=== PATIENT | female | born 1960 | race African-American/Black ===

== ENCOUNTER 2021-10-07 14:36 | Inpatient (IN) | payer OTHER ==
[~2021-10-07] VITALS: Ht 152.4 cm; Wt 122.5 kg
--- NOTE | ~2021-10-07 | EMS ---
[address] [address] EMS Patient Care Report Name: SHERRY WEIR Room #: 205-P ADM IN M.R.#: [id number] Admission: 10/07/21 Attend Phys: Aydin Titus MD Discharge: Date of : 60 Report #: [id number] THIS REPORT FOR: //name// Report Transmitted: 10/09/2021 09:53 EMS Care Summary [place], [place]/[facility] Incident [id number] @ 10/07/2021 14:07 Incident Location [address] [facility] [address] Patient SHERRY MARTINEZ Female, 60 Years 1960 Patient Address [address] [facility] [address] [place] [address] Patient History Stroke/CVA, Patient Allergies No known allergies, Patient Medications Unknown, Chief Complaint RLQ ABD PAIN Disposition Transported No Lights/[place] Dispatch Reason Abdominal Pain/Problems Transported To [facility] Narrative UPON ARIVAL WE FOUND OUR 60 YEAR OLD FEMALE PATIENT, WITH A HX OF A CVA WITH LEFT SIDE DEFICITS, LAYING IN BED IN HER ROOM AT [facility] COMPLAINING OF CONSTANT, SHARP RLQ ABD PAIN X 24 HRS. THE PATIENT STATES [place] STAFF REFUSED TO [facility] [address] [place] [address] EMS Patient Care Report Name: SHERRY WEIR Room #: 205-P ADM IN Bryce#: [id number] Admission: 10/07/21 Attend Phys: Aydin Titus MD Discharge: Date of : 60 Report #: [id number] ADDRESS HER CONCERNS, SO SHE CALLED 911. THE PATIENT DENIES ANY CP, SOA, N/V/D, CONSTIPATION, BLOODY STOOLS, FEVER, CHILLS, OR RECENT ILLNESS. THE PATIENT REQUESTS TRANSPORT TO [facility] FOR EVALUATION. Initial Vitals @14:19P: 61,R: 18,BP: 153/67,Pain: 6/10,GCS: 15,SpO2: 97,Revised Trauma: 12, @14:30P: 68,R: 18,BP: 150/68,Pain: 6/10,GCS: 15,SpO2: 98,Revised Trauma: 12, Assessments @14:15MENTAL:Time Oriented,Person Oriented,Place Oriented,Event Oriented,SKIN:HEENT:Eyes: Left Pupil: 4-mm,Eyes: Right Pupil: 4-mm,Head/Face: No Abnormalities,Neck/Airway: No Abnormalities,LUNG SOUNDS:Right Lower: Tenderness,General: No Abnormalities,ABDOMEN:Right Lower: Tenderness,General: No Abnormalities,PELVIS//GI:No Abnormalities,EXTREMITIES:Left Arm: No Abnormalities,Right Arm: No Abnormalities,Left Leg: No Abnormalities,Right Leg: No Abnormalities,PULSE:Radial: 2+ Normal,NEURO:No Abnormalities, Impression Abdominal Pain Procedures @14:15 ALS Assessment Response: UnchangedSucceeded Timeline 14:04,Call Received 14:04,Dispatch Notified 14:07,Dispatched 14:08,En Route 14:11,On Scene 14:15,At Patient 14:15,ALS Assessment,Response: UnchangedSucceeded, 14:19,BP: 153/67 M,PULSE: 61,RR: 18 R,SPO2: 97 Ox,ETCO2: ,BG: ,PAIN: 6,GCS: 15, 14:21,Depart Scene 14:30,BP: 150/68 M,PULSE: 68,RR: 18 R,SPO2: 98 Ox,ETCO2: ,BG: ,PAIN: 6,GCS: 15, 14:32,At Destination 14:47,Call Closed Disclaimer v1.1 Copyright 2020 [employer] This EMS Care Summary contains data elements from the applicable legal record (which may be displayed differently). It is designed to provide pertinent information for the following purposes: continuity of care, clinical quality, and state data reporting. The complete legal record is available to ED staff and administrators of the receiving hospital in ES's Patient Tracker. All data is provided "as is."
[~2021-10-07 14:36] MED LIST: ACETAMINOPHEN325 M1 PO; AMIODARONE HCL400 MG PO; AMLODIPINE BESY10 MG PO; BRIVIACT50 MG PO; BUSPIRONE HCL10 MG PO; CARVEDILOL25 MG PO; CLONIDINE HCL0.1 MG PO; DAILY VALUE1 EAC1 PO; DEPAKOTE250 MG PO; ELIQUIS5 MG PO; FAMOTIDINE 20 M20 MG PO; HUMALOG100 UNIT/1 SUBQ; HYDRALAZINE 5050 MG PO; IMDUR 60 MG TAB60 M1 PO; LIDODERM1 EACH TOP; LIPITOR40 MG PO; LISINOPRIL20 MG PO; LORAZEPAM 0.50.5 MG PO; MIRALAX17 GM PO; NITROSTAT0.4 M1 SUBLING; TRAZODONE HCL50 MG PO; ULTRAM50 MG PO
[2021-10-07 14:37] VITALS: BP 149/84
[2021-10-07 15:10] LABS: ABSOLUTE NEUTROPHILS 2.8 thou/uL (1.4-8.2); BASOPHILS 1.2 % (0.0-2.0); EOSINOPHILS 2.6 % (0.0-3.0); HEMATOCRIT 45.1 % (37.0-47.0); HEMOGLOBIN 14.4 gm/dL (12.0-15.0); LYMPHOCYTES 27.7 % (24.0-44.0); MCH 32.4 pg (26.0-34.0); MCV 101.1 fL (80.0-100.0); PLATELET COUNT 143 thou/uL (150-400); POLYS 56.5 % (36.0-66.0); RBC 4.46 mil/uL (4.20-5.00); RDW 15.9 % (10.5-14.5); WBC 4.9 thou/uL (4.0-11.0)
[2021-10-07 15:14] LABS: CALCIUM 9.1 mg/dL (8.5-10.1); CREATININE 1.3 mg/dL (0.6-1.0); POTASSIUM 3.9 mmol/L (3.5-5.1)
[2021-10-07 15:24] LABS: ALBUMIN 2.6 g/dL (3.4-5.0); TOTAL BILIRUBIN 0.3 mg/dL (0.2-1.0); TOTAL PROTEIN 6.6 g/dL (6.4-8.2)
[2021-10-07 19:02] VITALS: BP 159/100
[2021-10-07 20:00] VITALS: BP 154/96
[2021-10-07 23:38] VITALS: BP 165/89
[2021-10-08 04:20] VITALS: BP 180/81
--- NOTE | 2021-10-08 05:42 | NUR ---
ADMITTED THIS PATIENT AT AROUND 2000H FROM THE EMERGENCY DEPARTMENT.ON ROOM AIR BREATHING SPONTANEOUSLY.ADMISSION COMPLETED.ASSESSMENT CHARTED.HAD COMPLAINTS OF PAIN AT THE RIGHT LOWER QUADRANT, BUILDING COORDINATOR INFORMED.PAIN MEDS GIVEN CHARTED.BLOOD PRESSURE HAS BEEN ON THE HIGH SIDE, BUILDING COORDINATOR INFORMED, ORDER TAKEN.MED RECONCIALTIONS WAS NOT YET DONE, PATIENT DOESNT REMEMBER MEDS SHE HAS TAKEN, INFORMED BUILDING COORDINATOR.ALL NEEDS ATTENDED.TO CONTINOUSLY MONITOR.
[2021-10-08 05:51] LABS: HEMATOCRIT 44.2 % (37.0-47.0); HEMOGLOBIN 14.3 gm/dL (12.0-15.0); MCH 32.4 pg (26.0-34.0); MCHC 32.3 g/dL (28.0-37.0); MCV 100.1 fL (80.0-100.0); RBC 4.41 mil/uL (4.20-5.00); RDW 15.9 % (10.5-14.5); WBC 5.6 thou/uL (4.0-11.0)
[2021-10-08 06:22] LABS: ALBUMIN 2.8 g/dL (3.4-5.0); CALCIUM 9.6 mg/dL (8.5-10.1); CREATININE 1.2 mg/dL (0.6-1.0); MAGNESIUM 2.5 mg/dL (1.8-2.4); POTASSIUM 4.2 mmol/L (3.5-5.1); TOTAL BILIRUBIN 0.4 mg/dL (0.2-1.0); TOTAL PROTEIN 6.8 g/dL (6.4-8.2)
[2021-10-08 07:30] VITALS: BP 174/92
--- NOTE | 2021-10-08 08:29 | NUR ---
RECEIVED PT FROM GUARD MANAGER; CONDUCTED EKG THIS MORNING. PT IS AXOX4, C/O ABD PAIN IN RLQ. ELEVATED BP AT 174/92. 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 PLACED O2 ON PT FOR COMFORT. DR HARRIET CÁRDENAS, DR SANDERS AND CARDIOLOGY CONSULTED THIS AM. WILL CONTINUE TO MONITOR PT PAIN AND NAUSEA. FALL PRECAUTIONS IN PLACE.
[2021-10-08 11:50] VITALS: BP 179/76
[2021-10-08 15:50] VITALS: BP 168/98
--- NOTE | 2021-10-08 19:34 | NUR ---
PT IS AXOX4, PLEASANT; VSS, AFEBRILE, SR ON THE MONITOR. PT C/O PAIN IN RLQ, TENDER TO THE TOUCH, PAIN REMAINS WHEN PRESSED ON AND DOES NOT INCREASE WITH REBOUND. PT DESCRIBES PAIN SHARP. PT WAS EXTREMELY ANXIOUS THIS AM; NPO WITH NO MEDS FROM HOME MED REC WAS INCOMPLETE. CALLED FACILITY TO RECONCILE MEDS. HOME MEDS MADE AVAILABLE THIS PM. PT WAS ABLE TO REST COMFORTABLY THIS AFTERNOON AFTER ANXIOLYTICS AND PAIN RX. DR LARIOS CONSULTED, DR SHAFFER CONSULTED. POC IS POSS NM STRESS TEST IN AM. NO ORDERS AT THIS TIME FOR TEST. GI CONSULTED. PLAN REGARDING GI IN R/T ABD PAIN IS PAIN MGMT. PT REQUESTED ALL 4 SIDE RAILS UP AND EDUCATION CONDUCTED. FALL PRECAUTIONS IN PLACE. NO CONCERNS AT THIS TIME.
[2021-10-08 20:55] VITALS: BP 132/93
[2021-10-09 04:45] VITALS: BP 123/69
[2021-10-09 04:58] VITALS: BP 130/76
--- NOTE | 2021-10-09 06:05 | NUR ---
ASSESSMENTS CHARTED. PATIENT RESTING IN BED DURING SHIFT. PATIENT STATES SHE HASNT GOTTEN OUT OF BED IN A YEAR. BACKSIDE SKIN LOOKS GOOD. PATIENT HAS FEAR OF FALLING AND REQUESTS THAT ALL 4 RAILS BE UP AT ALL TIMES. PATIENT SCHEDULED FOR NUC STRESS TEST THIS AM.
--- NOTE | 2021-10-09 07:36 | EKG ---
[address] [address] ELECTROCARDIOGRAM REPORT Name: SHERRY WEIR Room #: 205-P ADM IN M.R.#: [id number] Admission: 10/07/21 Attend Phys: Aydin Titus MD Discharge: Date of : 60 Report #: [id number] [facility] ED Test Date: 2021-10-07 Test Time: 15:02:45 Pat Name: SHERRY SUMMERS Department: Room: [facility] Gender: F Senior System Operator: ALTON : 1960 Requested By: Mac Heck Order Number: [id number] MD: Jonathan Franco Measurements Intervals [place] Rate: 59 P: 1 SC: 220 QRS: -18 QRSD: 113 T: 154 QT: 521 QTc: 517 Interpretive Statements Sinus rhythm Probable left atrial enlargement LVH with IVCD and secondary repol abnrm Prolonged QT interval Compared to ECG 06/27/2021 04:40:11 ST (T wave) deviation now present Electronically Signed On 10-09-2021 7:36:15 TAPE KELLER OPERATOR by Jonathan Franco [email or web address] <ELECTRONICALLY SIGNED> By: Jonathan Franco MD, FACC 10/09/21 0736 1502 1502 Jonathan Franco MD, FACC /EPI
--- NOTE | 2021-10-09 07:38 | EKG ---
[address] [address] ELECTROCARDIOGRAM REPORT Name: SHERRY WEIR Room #: 205- ADM IN M.R.#: [id number] Admission: 10/07/21 Attend Phys: Aydin Titus MD Discharge: Date of : 60 Report #: [id number] [facility] ED Test Date: 2021-10-07 Test Time: 18:33:25 Pat Name: SHERRY SUMMERS Department: Room: 205 Gender: F Psychiatric Secretary: GEOVANI : 1960 Requested By: Camden Gutierrez Order Number: [id number] MD: Jonathan Franco Measurements Intervals [place] Rate: 58 P: 16 [place]: 232 QRS: 6 QRSD: 121 T: 190 QT: 521 QTc: 512 Interpretive Statements Sinus rhythm Compared to ECG 10/07/2021 15:02:45 Intraventricular conduction delay no longer present Left ventricular hypertrophy no longer present Early repolarization no longer present ST (T wave) deviation no longer present Electronically Signed On 10-09-2021 7:38:09 MANAGER POWER by Jonathan Franco [email or web address] <ELECTRONICALLY SIGNED> By: Jonathan rFanco MD, FACC 10/09/21 0738 32 32 Jonathan Franco MD, [facility] /EPI
--- NOTE | 2021-10-09 07:39 | EKG ---
[place] [address] [place] [address] ELECTROCARDIOGRAM REPORT Name: SHERRY WEIR Room #: 205- ADM IN M.R.#: [id number] Admission: 10/07/21 Attend Phys: Aydin Ttius MD Discharge: Date of : 60 Report #: [id number] [facility] Test Date: 2021-10-08 Test Time: 08:00:22 Pat Name: SHERRY SUMMERS Department: Room: 205 Gender: F Sheeter Machine Operator: KERRI : 1960 Requested By: Aydin Titus Order Number: [id number] MD: Jonathan Franco Measurements Intervals [place] Rate: 71 P: -5 IN: 194 QRS: -17 QRSD: 107 T: 148 QT: 465 QTc: 506 Interpretive Statements Sinus rhythm Atrial premature complex Probable left atrial enlargement Abnormal R-wave progression, late transition LVH with secondary repolarization abnormality Minimal ST elevation, inferior leads Borderline prolonged QT interval Baseline wander in lead(s) III Compared to ECG 10/07/2021 18:33:25 Atrial premature complex(es) now present First degree AV block no longer present Left bundle-branch block no longer present Electronically Signed On 10-09-2021 7:39:24 FEED CRUSHER OPERATOR by Jonathan Franco [email or web address] <ELECTRONICALLY SIGNED> By: Jonathan Franco MD, [facility] 10/09/21738 9 9 Jonathan Franco MD, [facility] /EPI
[2021-10-09 08:00] VITALS: BP 116/63
[2021-10-09 15:30] VITALS: BP 119/68
--- NOTE | 2021-10-09 17:29 | NUR ---
Case opened to follow for dc planning. Senior Storage Engineer visited with the pt at bedside and the liason from [facility]. The pt has lived there over a year after having a stroke. [place] and [place]. She is a&ox4 and is able to communicate with her spouse,sister and son to keep them updated. She notes her spouse and sister are her dpoa's if needed. She indicates some frustrations with care and that she is bedbound. She does not recieve any therapy due to her insurance and she notes the [facility] at the [facility] and they do not get her out of bed.She is interested in referrals being sent to other [facility] facilities. Cat their liason contacted and referral faxed. Cat to f/u with the pt tomorrow to discuss options. She has a test in the am and may be cleared for dc after that. Support provided. Pt agreeable to return to the facility if dc tomorrow and then continuing to work with their liason/BALANCE BRIDGE ASSEMBLER to help relocate.
--- NOTE | 2021-10-09 19:46 | NUR ---
PT IS AXOX4, SOME ANXIETY, PLEASANT; VSS, AFEBRILE, SR/SB 1AVB ON THE MONITOR. PT HAD PART OF NM STRESS TEST TODAY PER CARDIOLOGY. PLAN TO COMPLETE SECOND PART IN AM AT [address] RAE CONSULTED. CARDIOLOGY CONSULTED. CASE MGMT CONSULTED. PT WILL DISCUSS OPTIONS WITH CASE MGMT REGARDING D/C TO FACILITY SHE WANTS TO PROMOTE MOBILITY. PT/OT CONSULTED TO ASSIST WITH REHAB ABLE. PT PROGRESSING TOWARDS GOAL OF D/C. FALL PRECAUTIONS IN PLACE. NO CONCERNS AT THIS TIME.
[2021-10-09 20:15] VITALS: BP 144/75
--- NOTE | 2021-10-10 04:17 | NUR ---
RECEIVED PATIENT AT 1900H.PATIENT IS ALERT AND ORIENTED X4.HAD COMPLAINTS OF RIGHT LOWER ABDOMINAL PAIN, PRN PAIN MED GIVEN CHARTED.ASSESSMENT CHARTED.ALL NEEDS ATTENDED.TO CONTINOUSLY MONITOR.
[2021-10-10 04:45] VITALS: BP 136/78
[2021-10-10 08:00] VITALS: BP 144/79
--- NOTE | 2021-10-10 08:30 | NUR ---
PT OFF UNIT FOR STRESS TEST.
[2021-10-10 11:58] VITALS: BP 136/71
[2021-10-10] MEDS ORDERED: HYDROCODON-ACE1 EAC7 PO (12:35)
--- NOTE | 2021-10-10 15:38 | NUR ---
spoke with patient who does not want to return to [place]. She spoke with liason. She is agreeable to return to [place] and has option to transfer to another facility. She reports her family aware she is in hospital. Plan dc to [place] in am will need stretcher transport.
[2021-10-10 16:00] VITALS: BP 125/69
[2021-10-10 19:15] VITALS: BP 130/64
[2021-10-10 23:19] VITALS: BP 144/79
[2021-10-11] VITALS (9 sets, daily range): BP systolic 133–161; BP diastolic 69–91
--- NOTE | 2021-10-11 03:51 | NUR ---
ASSESSMENTS CHARTED, MEDS CHARTED GIVEN. PATIENT LAYING IN BED DURING SHIFT. IN GOOD SPIRITS. SHE HAS QUESTIONS ABOUT IF SHE NEED SURGERY, A CATH, OR NOTHING. SHE IS CONFUSED ABOUT WHAT DR. MOY TOLD HER. PATIENT CURRENTLY WEARING 1" OF NITRO PASTE FOR CHEST PAIN. CURRENTLY DENIGHING PAIN.
[2021-10-11 08:46] LABS: HEMATOCRIT 38.6 % (37.0-47.0); HEMOGLOBIN 12.5 gm/dL (12.0-15.0); MCH 32.4 pg (26.0-34.0); MCHC 32.4 g/dL (28.0-37.0); RBC 3.86 mil/uL (4.20-5.00); RDW 15.2 % (10.5-14.5); WBC 4.2 thou/uL (4.0-11.0)
[2021-10-11 08:52] LABS: CREATININE 1.3 mg/dL (0.6-1.0); POTASSIUM 4.4 mmol/L (3.5-5.1)
--- NOTE | 2021-10-11 13:38 | NUR ---
Patient will not be dc this weekend. Updated [facility]. Plan return to [place] once stable. Will need stretcher transport.
[2021-10-12 04:17] VITALS: BP 181/95
--- NOTE | 2021-10-12 04:18 | NUR ---
ASSESSMENTS CHARTED. PATIENT WENT TO HAIRSPRING I INSPECTOR TODAY, FOUND BLOCKAGE IN LAD. NO INTERVENTIONS WERE DONE TODAY. RESCHEDULED FOR SATURDAY WHEN SURGERY IS AVAILABLE ON BACKUP. DISCUSSED TODAYS EVENTS WITH PATIENT AND ANSWERED QUESTIONS. RIGHT GROIN SITE LOOKS DRY AND SOFT. PATIENT CONTINUES TO BE PLEASANT AND POSITIVE.
[2021-10-12 06:20] LABS: CALCIUM 9.2 mg/dL (8.5-10.1); CREATININE 1.1 mg/dL (0.6-1.0); POTASSIUM 4.1 mmol/L (3.5-5.1)
[2021-10-12 07:30] VITALS: BP 181/106
[2021-10-12 11:16] VITALS: BP 121/65
--- NOTE | 2021-10-12 16:00 | NUR ---
PATIENT COMPLAINING OF CHEST PAIN 5/10. OBTAINED EKG, PLACED 1 LITER OF OXGEN FOR COMFORT AND ADMINISTERED 2 MG MORPHINE IV. PAIN SUBSIDED 010. PLACED CALL TO DR. SUBRAMANIAN. EKG IN CHART.
[2021-10-12 16:19] VITALS: BP 120/76
[2021-10-12 19:36] VITALS: BP 142/92
--- NOTE | 2021-10-12 23:19 | NUR ---
ASSESSMENT COMPLETED. PT ALERT AND ORIENTED. C/O RLQ PAIN AT THE START OF SHIFT, LIDOCAINE PATCH REMOVED AND PT GIVEN NORCO PRN. HEATING PAD ALSO REMAINS IN PLACE AND PATIENT REPORTS THAT IT HELPS.EXTERNAL FEM CATH IN PLACE AND WORKING.PT IS ON FOR COMFORT. SHE DENIES ANY CHEST PAIN OR TIGHTNESS.SWALLOWS WITH NO DIFFICULTY. LEFT SIDED HEMIPARESIS WITH SWELLING NOTED MORE ON THE LLE.ACCUCHECK OF 101 AT HS. NO FURTHER CONCERNS AT THIS TIME.CALL LIGHT WITHIN REACH.
[2021-10-13 03:46] VITALS: BP 168/90
[2021-10-13 07:55] VITALS: BP 140/81
--- NOTE | 2021-10-13 09:59 | EKG ---
[address] [address] ELECTROCARDIOGRAM REPORT Name: SHERRY WEIR Room #: 205- ADM IN M.R.#: [id number] Admission: 10/07/21 Attend Phys: Aydin Titus MD Discharge: Date of : 60 Report #: [id number] [facility] Test Date: 2021-10-12 Test Time: 16:05:25 Pat Name: SHERRY SUMMERS Department: Room: 205 Gender: F Head Waiter/Waitress: OLVIN : 1960 Requested By: Jb Zavaleta Order Number: [id number] MD: Naeem Kraft Measurements Intervals [place] Rate: 54 P: 9 UT: 220 QRS: -17 QRSD: 131 T: 146 QT: 523 QTc: 496 Interpretive Statements Sinus rhythm Prolonged UT interval LVH with repolarization abnormality Compared to ECG 10/08/2021 08:00:22 No significant change Electronically Signed On 10-13-2021 9:59:45 SUPERVISOR MODERN LANGUAGES by Naeem Kraft [email or web address] <ELECTRONICALLY SIGNED> By: Naeem Kraft MD 10/13/21 0959 1605 04 MD SAMUEL Lee
[2021-10-13 11:50] VITALS: BP 143/79
--- NOTE | 2021-10-13 13:27 | NUR ---
WAS NOTIFIED BY CASE MGMT MGR KATT ROSALES THAT PT IS NOT GOING TO HAVE A PROCEDURE AND IS ABLE TO DC BACK TO [facility]. SPOKE WITH PT'S NURSE AND SHE CONFIRMED THAT PT IS OK FOR DISCHARGE BACK. SPOKE WITH ANOOP FROM [facility] THEY ARE ABLE TO TAKE PT BACK TODAY. PT'S NURSE CALLED TO SAY PT IS NOT WANTING TO RETURN BACK TO FACILITY DOES NOT LIKE IT. I, TOLD THE NURSE THAT PT IS TO DC BACK AND ASK FOR THE PRODUCT SALES ENGINEER AT THE FACILITY AND SHE CAN FACILITATE THAT REQUEST PT ONLY HAS MEDICAID FOR INSURANCE. FAXED DC ORDERS/SUMMRY TO FACILITY RECEIVED CONFIRMATION SPOKE WITH ANOOP SHE ARRANGED WC VAN FOR 1600 TODAY. NOTIFIED PT'S STELLA OF DC AND TIME OF TRANSPORT. UNIT NOTIFIED AND CHART COPY PER US. RN TO CALL REPORT TO [phone].
--- NOTE | 2021-10-13 17:44 | NUR ---
TOOK OVER CARE FOR THIS PATIENT AT 0700. PATIENT SLEEPING IN BED DURING REPORT. PATIENT AXOX4; NONAMBULATORY DUE TO HX OF CVA. PATIENT COMPLAINT OF RLQ PAIN; ADMIN PRN PAIN MEDICATION. PT COMPLAINT OF CONSTIPATION; ADMIN MAGNESIUM CITRATE. PLAN IS TO D/C TODAY; TRANSPORT CAME TO GET PATIENT AT 1500. CHART COPY SENT WITH TRANSPORT COMPANY AND REPORT CALLED TO WILLIAN AT [facility]. NO QUESTIONS REGARDING DISCHARGE AT THIS TIME.
--- NOTE | 2021-10-15 15:40 | CATHLAB ---
[facility] [place] [address] INVASIVE PROCEDURE REPORT Name: SHERRY WEIR Room #: 205-P DIS IN M.R.#: [id number] Admission: 10/07/21 Attend Phys: Adyin Titus MD Discharge: 10/13/21 Date of : 60 Report #: [id number] THIS REPORT FOR: cc: Aldo Brar MD, Srinath MD Lammoglia, Francisco J. MD ~ APPROVED REPORT Study performed: 10/11/2021 08:43:53 Patient Details Patient Status: In-Patient Room #: 205 The patient is a 60 year-old female Event Personnel Harry Riggs Clothing Busheler, Ronna Lee RTR Monitor, Maria Elena Durán RTR, MAREK Scrub, Collette Vuong RN nuclear medicine technician Performed Coronary Angiography Only [id number] [facility] Art Access - R femoral artery* [id number] Initial Mod Sed Same Phys/QHP Gr5y 298151 Hemostasis with Manual pressure, supervision of conscious sedation Indication Positive stress test, Chest pain Procedure Narrative The Right Groin^ was infiltrated with 1% Lidocaine subcutaneous anesthesia. A PINNACLE 4FR Sheath #[id number] sheath was inserted into the RFA^. Coronary angiography was performed using coronary diagnostic catheters. The right coronary system was accessed and visualized with a JR4 catheter. The left coronary system was accessed and visualized with a JL4 catheter. Hemostasis was obtained with manual pressure following sheath removal without any complications. The patient tolerated the procedure well and there were no complications associated with the procedure. There was no hematoma. Intraoperative Conscious Sedation Sedation start time: 9:17 Case end Time: 9:47 Versed 2 mg [facility] [address] [place] [address] INVASIVE PROCEDURE REPORT Name: LUI SUMMERSSHERRY Room #: 205-P [facility].#: [id number] Admission: 10/07/21 Attend Phys: Aydin Titus MD Discharge: 10/13/21 Date of : 60 Report #: [id number] Fluoro Time: 2.37 minutes Dose: DAP 3971.40 cGycm2 585 mGy Contrast Type and Amount: Omnipaque 55 ml Coronary Angiography The patient's coronary anatomy is right dominant. Diagnostic Cath Left Main Large-caliber vessel of normal origin bifurcates left anterior single circumflex. There is a proximal tapering at its origin of approximately 40 to 50%. It does not appear to be flow-limiting. LAD Large-caliber type III vessel which courses in the interventricular sulcus giving rise to diagonal and septal branches. After the first diagonal branch is a region of pending there appears to be an eccentric lesion also a 50% or less does not have any significant flow-limiting noted. Prior to the origin of the second diagonal there is a napkin ring lesion but does not appear to have any significant flow-limiting findings. The vessel and continues on and terminates in the posterior inferior wall of the left ventricle Diagonal 1 Small caliber vessel significant high-grade lesions noted Diagonal 2 Moderate caliber tortuous vessel without significant high-grade lesion Circumflex Very large caliber nondominant vessel coursing the AV groove giving rise to a large first marginal branch and a smaller caliber second marginal branch and a large terminal bifurcating third marginal branch course on the lateral posterior aspect of the heart. No significant high-grade lesions are noted only luminal irregularities are seen OM1 Large-caliber vessel without significant stenosis present OM2 Moderate caliber vessel significant obstructive lesion OM3 Large-caliber bifurcating vessel courses quite tortuous in its path but high-grade lesions are not observed no significant flow-limiting finding Right Coronary Large-caliber vessel normal origin with a corrigan's crook deformity proximally. There is a napkin ring type lesion that is not flow-limiting noted proximally. The vessel and continues on gives rise to atrial and ventricular branches looks the acute margin to the crux of the heart rate gives rise to a posterior descending artery. Then terminates is a smaller caliber posterior lateral wall branch [facility] [address] [place] [address] INVASIVE PROCEDURE REPORT Name: POE CHERRYSHERRY DAVIS Room #: 205-P [facility] IN M.R.#: [id number] Admission: 10/07/21 Attend Phys: Aydin Titus MD Discharge: 10/13/21 Date of : 60 Report #: [id number] PDA Moderate to large caliber vessel has an early branch and continues in AV groove to the apex. No high-grade lesions are present Left Ventriculography Left Ventriculography was not performed. Conclusion 1. Coronary disease two-vessel nonobstructive 2. Abnormal hemodynamics elevated limited end-diastolic pressure Recommendations Cardiac Risk Reduction Program Medical Therapy <ELECTRONICALLY SIGNED> By: Harry Riggs MD 10/15/21 1539 1539 1539 Harry Riggs MD /INF
== END 2021-10-13 15:01 | DRG 287 ==
LOC: ER 14:36 → 2N 17:44 → EROBS 17:44 → 2N 19:41
PROVIDERS: Internal Medicine; Physician Assistant; ADMIT Internal Medicine; ATTEND Internal Medicine
PROC: B2111ZZ Fluoroscopy of Multiple Coronary Arteries using Low Osmolar Contrast (ICD-10-PCS; principal; 2021-10-11)
PROC: 4A023N7 Measurement of Cardiac Sampling and Pressure, Left Heart, Percutaneous Approach (ICD-10-PCS; principal; 2021-10-11)
DX: I25.10 Atherosclerotic heart disease of native coronary artery without angina pectoris (principal); I69.354 Hemiplegia and hemiparesis following cerebral infarction affecting left non-dominant side; Z68.43 Body mass index [BMI] 50.0-59.9, adult; K63.89 Other specified diseases of intestine; E66.01 Morbid (severe) obesity due to excess calories; I12.9 Hypertensive chronic kidney disease with stage 1 through stage 4 chronic kidney disease, or unspecified chronic kidney disease; N18.9 Chronic kidney disease, unspecified; R77.8 Other specified abnormalities of plasma proteins; E11.22 Type 2 diabetes mellitus with diabetic chronic kidney disease; F41.1 Generalized anxiety disorder; E78.5 Hyperlipidemia, unspecified; R13.10 Dysphagia, unspecified; R10.9 Unspecified abdominal pain; E89.0 Postprocedural hypothyroidism; Z20.822 Contact with and (suspected) exposure to COVID-19; Z79.899 Other long term (current) drug therapy; Z79.4 Long term (current) use of insulin
CPT/HCPCS: 10081